=== PATIENT | male | born 1975 | race African-American/Black ===

== ENCOUNTER 2018-01-11 10:36 | Emergency (ER) | payer MEDICAID ==
[~2018-01-11] VITALS: Ht 193 cm; Wt 90.9 kg
[2018-01-11] MEDS ORDERED: IBUPROFEN 800 MG TABLET PO ONE (11:30)
[2018-01-11 12:31] VITALS: BP 122/87
== END 2018-01-11 12:30 | disposition home or self-care (01) ==
LOC: EMS 10:39
DX: S00.83XA Contusion of other part of head, initial encounter (principal); R03.0 Elevated blood-pressure reading, without diagnosis of hypertension; W18.39XA Other fall on same level, initial encounter; Y93.89 Activity, other specified; Y92.89 Other specified places as the place of occurrence of the external cause; Y99.8 Other external cause status
CPT/HCPCS: 99282

== ENCOUNTER 2018-08-15 18:14 | Emergency (ER) | payer MEDICAID ==
[~2018-08-15] VITALS: Ht 193 cm; Wt 90.9 kg
[2018-08-15 18:49] VITALS: BP 128/83
== END 2018-08-15 21:25 | disposition left against medical advice (07) ==
LOC: EMS 18:15
DX: S43.402A Unspecified sprain of left shoulder joint, initial encounter (principal); X50.9XXA Other and unspecified overexertion or strenuous movements or postures, initial encounter; Y93.89 Activity, other specified; Y92.89 Other specified places as the place of occurrence of the external cause; Y99.8 Other external cause status